=== PATIENT | female | born 1975 | race Caucasian/White ===

== ENCOUNTER 2020-02-13 16:48 | Emergency (ER) | payer MEDICARE, MEDICAID, SELFPAY ==
[2020-02-13 16:52] VITALS: BP 136/90; PULSE 118; RESP 18; TEMP 36.8; O2SAT 97; BMI 25.0
--- NOTE | 2020-02-13 17:46 | PC.NURSE ---
reports she just finished chemo on .. reports her left hand started to swell, redness. hand is dry and redness, edema extends up forearm. Redness is marked from walk in clinic on her arm. pt's right cw port is asymtomatic. no redness on skin. states her right ear is painful and started to hurt after chemo.
--- NOTE | 2020-02-13 18:01 | DI.US.S_ITS ---
PROCEDURE: US PERIPH VENOUS UP EXTREM LT INDICATIONS: Redness, swelling, chemotherapy TECHNIQUE: Real-time imaging, as well as color and pulse Doppler interrogation, was performed of the left upper extremity deep veins from the inferior neck to the antecubital fossa. COMPARISON: None. FINDINGS: The internal jugular vein, visualized portions of the subclavian vein, axillary, and brachial veins are free of intraluminal thrombus. Where physically possible, the veins are normally compressible. Color and pulse Doppler demonstrate normal intraluminal flow, with expected phasicity and pulsatility. Additional scanning of the cephalic and basilic veins of the superficial system demonstrate normal compressibility, without thrombus. IMPRESSION: No sonographic evidence of left upper extremity DVT. Dictated by: Topher Hester M.D. on 02/13/2020 at 19:09 Approved by: Topher Hester M.D. on 02/13/2020 at 19:10
[2020-02-13] MEDS: LIDOCAINE/PRILOCAINE 5 GM TOP (18:14)
[2020-02-13 19:27] LABS: Add Manual Diff / Slide Review NO; Basophils Absolute Auto 0 /uL (0-100); Basophils Percent Auto 0.2 % (0-2); Eosinophils Absolute Auto 0 /uL (0-450); Eosinophils Percent Auto 0.1 % (2-4); Hematocrit 28.3 % (36-46); Hemoglobin 9.8 g/dL (12.0-16.0); Lymphocytes Absolute Auto 600 /uL (1100-4500); Lymphocytes Percent Auto 7.8 % (25-40); Mean Corpuscular HGB Conc 34.5 % (30-36); Mean Corpuscular Hemoglobin 31.4 PG (26-34); Mean Corpuscular Volume 91.2 fL (80-100); Monocytes Absolute Auto 300 /uL (0-900); Monocytes Percent Auto 3.7 % (3-14); Neutrophils Absolute Auto 7200 /uL (1500-7000); Neutrophils Percent Auto 88.2 % (50-75); Platelet Count 407 X10^3/uL (150-400); Red Blood Cell Count 3.11 X10^6/uL (4.0-5.2); Red Cell Distribution Width 16.2 % (11.6-14.8); White Blood Cell Count 8.1 X10^3/uL (4.5-11.0)
[2020-02-13 19:34] LABS: Alanine Aminotransferase 48 IU/L (<35); Albumin 4.3 g/dL (3.5-5.0); Albumin Globulin Ratio 1.4 (1.0-2.8); Alkaline Phosphatase 74 U/L (38-126); Aspartate Aminotransferase 33 IU/L (14-36); BUN Creatinine Ratio 28.6 (6-22); Bilirubin Total 0.5 mg/dL (0.2-1.3); Blood Urea Nitrogen 12 mg/dL (7-17); Calcium 8.2 mg/dL (8.4-10.2); Carbon Dioxide 31 mmol/L (22-32); Chloride 101 mmol/L (98-107); Estimated Glomerular Filt Rate > 60.0 mL/min (>60); Globulin 3.1 g/dL (1.7-4.1); Glucose 106 mg/dL (70-100); HEMOLYSIS < 15 (0-50); Potassium 3.9 mmol/L (3.4-5.1); Sodium 137 mmol/L (137-145); Total Protein 7.4 g/dL (6.3-8.2)
[2020-02-13 19:52] LABS: Procalcitonin 0.05 ng/mL (<0.5)
[2020-02-13] MEDS: KETOROLAC 60 MG/2 ML VIAL 30 MG IV (19:52)
[2020-02-13 19:53] LABS: Bacteria Urine None Seen
--- NOTE | 2020-02-13 19:59 | DI.RAD.S_ITS ---
PROCEDURE: XR HAND LT MIN 3V INDICATIONS: pain, swelling L hand TECHNIQUE: 3 views of the hand(s) acquired. COMPARISON: None. FINDINGS: Bones: No fractures or dislocations. Carpal bones are normally aligned. No suspicious bony lesions. Soft tissues: No suspicious soft tissue calcifications. IMPRESSION: No acute finding. Dictated by: Topher Hester M.D. on 02/13/2020 at 20:26 Approved by: Topher Hester M.D. on 02/13/2020 at 20:26
[2020-02-13 20:01] LABS: Amorphous Sediment Urine 1+; Culture Indicated Urine Cult Not Indicated; Mucus Urine 2+ (Negative); RBC Urine 5-10/HPF (0-5/HPF); Squamous Epithelial Cell Urine 0-1 /HPF (0-5/HPF); WBC Urine 1-5/HPF (0-5/HPF)
--- NOTE | 2020-02-13 20:04 | ED_ITS ---
HPI - Ear Problem <BENNY Thomas - Last Filed: 02/13/20 20:36> General Chief complaint: Ear Stated complaint: RIGHT EAR PIAN SWELLING OF RIGHT HAND CHEMO PT Time Seen by Provider: 02/13/20 17:50 Source: patient Mode of arrival: Ambulatory Limitations: no limitations History of Present Illness HPI Narrative: The patient is a 44-year-old female nonsmoker with history of breast cancer on Taxol who presents with a chief complaint of has been red and swollen for 3-4 days. She states her pain is 10/10. It started at her thumb, and she has had decreased range of motion and increasing pain. She denies any fevers, denies any muscle aches complains of chills. She also complains of right-sided ear pain she notes that her ear canals painful, so she placed Vicks Vaporub in her ear canal to treat the ear pain per her mother's recommendation. This was not helpful. She denies any nausea vomiting or diarrhea any chest pain or shortness of breath. Related Data Home Medications Medication Instructions Recorded Confirmed calcitriol 0.25 mcg PO DAILY 02/13/20 02/13/20 calcium carbonate 300 mg (750 mg) 300 mg PO BID 02/13/20 02/13/20 chewable tablet calcium carbonate 600 mg calcium 600 mg PO DAILY 02/13/20 02/13/20 (1,500 mg) tablet gabapentin 100 mg PO BID 02/13/20 02/13/20 levetiracetam 1,000 mg tablet 1,000 mg PO BID 02/13/20 02/13/20 levothyroxine 112 mcg capsule 112 mcg PO DAILY 02/13/20 02/13/20 Previous Rx's Medication Instructions Recorded levofloxacin 750 mg PO DAILY #9 tab 02/13/20 ofloxacin 10 drop EAR-RIGHT DAILY 7 Days #10 02/13/20 ml Allergies Allergy/AdvReac Type Severity Reaction Status Date / Time latex Allergy Rash Verified 02/13/20 16:08 Review of Systems <BENNY Thomas - Last Filed: 02/13/20 20:36> Review of Systems Narrative: GENERAL: Denies chills, fatigue, malaise, fever, sweats. HEENT: See HPI RESPIRATORY: Denies dyspnea, cough, wheezing, hemoptysis, sputum. CARDIOVASCULAR: Denies chest pain, palpitations, orthopnea, edema, GASTROINTESTINAL: Denies nausea, vomiting, abdominal pain, diarrhea, constipation, melena. : Denies dysuria, frequency, incontinence, hematuria, urinary retention. MUSCULOSKELETAL: See HPI SKIN: Denies rash, skin lesions, or other NEUROLOGIC: Denies weakness, headache, numbness, change in speech, confusion, seizures, incoordination. PSYCHIATRIC: No concerning psychosocial issues. 12 point review of systems is negative except for those stated above Patient History <BENNY Thomas - Last Filed: 02/13/20 20:36> Medical History (Updated 02/13/20 @ 20:46 by Hiram Braun DO) Breast cancer (Acute) Exam <BENNY Thomas - Last Filed: 02/13/20 20:36> Narrative Exam Narrative: GENERAL: This is a well-nourished, well-developed patient, in no acute HEAD: Atraumatic. Normocephalic. No temporal or scalp tenderness. EYES: Pupils equal round and reactive. Extraocular motions intact. No scleral icterus. No injection or drainage. ENT: Nose without bleeding, purulent drainage or septal hematoma. Throat without erythema, tonsillar hypertrophy or exudate. Uvula midline. Airway patent. Right ear canal edematous, with purulent drainage. TM pearly mckeon. NECK: Trachea midline. No JVD or lymphadenopathy. Supple, nontender, no meningeal signs. CARDIOVASCULAR: Regular rate and rhythm RESPIRATORY: Clear to auscultation. Breath sounds equal bilaterally. No wheezes, rales, or rhonchi. No cough. No increased respiratory effort. No accessory muscle use. GASTROINTESTINAL: Abdomen soft, non-tender, nondistended. No hepato- splenomegaly, or palpable masses. No guarding. EXTREMITIES: The pain to palpation of left thumb, pain with active and passive range of motion. Capillary refill all fingers right hand less than 2 seconds. Pain palpation right hand that is generalized. Positive right radial pulse. BACK: Nontender without deformity or crepitance. No flank tenderness. NEURO: AOx3. SKIN: See extremity exam Initial Vital Signs Initial Vital Signs: Vital Signs Temperature 98.3 F 02/13/20 16:52 Pulse Rate 118 H 02/13/20 16:52 Respiratory Rate 18 02/13/20 16:52 Blood Pressure 136/90 02/13/20 16:52 Pulse Oximetry 97 02/13/20 16:52 <Hiram Braun DO - Last Filed: 02/13/20 22:42> Initial Vital Signs Initial Vital Signs: Vital Signs Temperature 98.3 F 02/13/20 16:52 Pulse Rate 118 H 02/13/20 16:52 Respiratory Rate 18 02/13/20 16:52 Blood Pressure 136/90 02/13/20 16:52 Pulse Oximetry 97 02/13/20 16:52 Scores <BENNY Thomas - Last Filed: 02/13/20 20:36> GCS [place] coma scale eye opening: Spontaneous [place] coma scale verbal response: Orientated [place] coma scale motor response: Obey commands Blaze coma scale total score: 15 Course <BENNY Thomas - Last Filed: 02/13/20 20:36> Orders Ordered: ED Orders 02/13/20 18:01 US periph venous up extrem lt Stat 02/13/20 19:15 Complete Blood Count AUTO DIFF Stat Comprehensive Metabolic Panel Stat Lactate (Lactic Acid) Stat Procalcitonin Stat 02/13/20 19:23 Blood Culture Stat 02/13/20 19:46 Urine Microscopic Stat 02/13/20 19:59 XR hand LT min 3V Stat 02/13/20 21:03 COVID19 -ED/INPAT/OR/L&D Stat Discontinued Medications Calcium Carbonate/Cholecalciferol (Oyster Shell 500-Vit D3 200 Tb) 1 each PO NOW ONE Stop: 02/13/20 22:07 Last Admin: 02/13/20 22:26 Dose: 1 each Documented by: RACHAEL Ceftriaxone Sodium/Dextrose (Rocephin) 1 gm in 50 mls @ 100 mls/hr IV NOW ONE Stop: 02/13/20 21:14 Last Infusion: 02/13/20 21:28 Dose: 0 mls/hr Documented by: Admin: 02/13/20 20:58 Dose: 100 mls/hr Documented by: RACHAEL Vancomycin HCl (Vancomycin) 1,000 mg in 200 mls @ 200 mls/hr IV NOW ONE Stop: 02/13/20 21:44 Last Admin: 02/13/20 21:34 Dose: 200 mls/hr Documented by: RACHAEL Ketorolac Tromethamine (Toradol) 30 mg IV NOW ONE Stop: 02/13/20 19:39 Last Admin: 02/13/20 19:52 Dose: 30 mg Documented by: RACHAEL Levetiracetam (Keppra) 500 mg PO NOW ONE Stop: 02/13/20 22:06 Levetiracetam (Keppra) 1,000 mg PO NOW ONE Stop: 02/13/20 22:08 Last Admin: 02/13/20 22:26 Dose: 1,000 mg Documented by: RACHAEL Levofloxacin (Levaquin) 750 mg PO NOW ONE Stop: 02/13/20 20:20 Last Admin: 02/13/20 20:52 Dose: Not Given Documented by: RACHAEL Lidocaine/Prilocaine (Lidocaine-Prilocaine Cream) 5 gm TOP NOW ONE Stop: 02/13/20 18:02 Last Admin: 02/13/20 18:14 Dose: 5 gm Documented by: EFFIE Vital Signs Vital signs: Vital Signs - 8 hr 02/13/20 16:52 02/13/20 22:15 Temperature 98.3 F Pulse Rate 118 H 96 H Respiratory Rate 18 15 Blood Pressure 136/90 101/62 Pulse Oximetry 97 98 <Hiram Braun DO - Last Filed: 02/13/20 22:42> Orders Ordered: ED Orders 02/13/20 18:01 US periph venous up extrem lt Stat 02/13/20 19:15 Complete Blood Count AUTO DIFF Stat Comprehensive Metabolic Panel Stat Lactate (Lactic Acid) Stat Procalcitonin Stat 02/13/20 19:23 Blood Culture Stat 02/13/20 19:46 Urine Microscopic Stat 02/13/20 19:59 XR hand LT min 3V Stat 02/13/20 21:03 COVID19 -ED/INPAT/OR/L&D Stat Discontinued Medications Calcium Carbonate/Cholecalciferol (O[place] 500-Vit D3 200 Tb) 1 each PO NOW ONE Stop: 02/13/20 22:07 Last Admin: 02/13/20 22:26 Dose: 1 each Documented by: RACHAEL Ceftriaxone Sodium/Dextrose (Rocephin) 1 gm in 50 mls @ 100 mls/hr IV NOW ONE Stop: 02/13/20 21:14 Last Infusion: 02/13/20 21:28 Dose: 0 mls/hr Documented by: Admin: 02/13/20 20:58 Dose: 100 mls/hr Documented by: RACHAEL Vancomycin HCl (Vancomycin) 1,000 mg in 200 mls @ 200 mls/hr IV NOW ONE Stop: 02/13/20 21:44 Last Admin: 02/13/20 21:34 Dose: 200 mls/hr Documented by: RACHAEL Ketorolac Tromethamine (Toradol) 30 mg IV NOW ONE Stop: 02/13/20 19:39 Last Admin: 02/13/20 19:52 Dose: 30 mg Documented by: RACHAEL Levetiracetam (Keppra) 500 mg PO NOW ONE Stop: 02/13/20 22:06 Levetiracetam (Keppra) 1,000 mg PO NOW ONE Stop: 02/13/20 22:08 Last Admin: 02/13/20 22:26 Dose: 1,000 mg Documented by: RACHAEL Levofloxacin (Levaquin) 750 mg PO NOW ONE Stop: 02/13/20 20:20 Last Admin: 02/13/20 20:52 Dose: Not Given Documented by: RACHAEL Lidocaine/Prilocaine (Lidocaine-Prilocaine Cream) 5 gm TOP NOW ONE Stop: 02/13/20 18:02 Last Admin: 02/13/20 18:14 Dose: 5 gm Documented by: EFFIE Vital Signs Vital signs: Vital Signs - 8 hr 02/13/20 16:52 02/13/20 22:15 Temperature 98.3 F Pulse Rate 118 H 96 H Respiratory Rate 18 15 Blood Pressure 136/90 101/62 Pulse Oximetry 97 98 Medical Decision Making <ZACH Thomas-INES - Last Filed: 02/13/20 20:36> Lab Data Result diagrams: 02/13/20 19:15 02/13/20 19:15 Labs: Lab Results 02/13/20 02/13/20 02/13/20 Range/Units 19:15 19:15 19:15 WBC 8.1 (4.5-11.0) X10^3/uL RBC 3.11 L (4.0-5.2) X10^6/uL Hgb 9.8 L (12.0-16.0) g/dL Hct 28.3 L (36-46) % MCV 91.2 (80-100) fL MCH 31.4 (26-34) PG MCHC 34.5 (30-36) % RDW 16.2 H (11.6-14.8) % Plt Count 407 H (150-400) X10^3/uL Neut % (Auto) 88.2 H (50-75) % Lymph % (Auto) 7.8 L (25-40) % [place] % (Auto) 3.7 (3-14) % Eos % (Auto) 0.1 L (2-4) % Baso % (Auto) 0.2 (0-2) % Neut # (Auto) 7200 H (0839-5630) /uL Lymph # (Auto) 600 L (9375-6298) /uL [place] # (Auto) 300 (0-900) /uL Eos # (Auto) 0 (0-450) /uL Baso # (Auto) 0 (0-100) /uL Sodium 137 (137-145) mmol/L Potassium 3.9 (3.4-5.1) mmol/L Chloride 101 (98-107) mmol/L Carbon Dioxide 31 (22-32) mmol/L BUN 12 (7-17) mg/dL Creatinine 0.42 L (0.52-1.04) mg/dL Estimated GFR > 60.0 (>60) mL/min BUN/Creatinine Ratio 28.6 H (6-22) Glucose 106 H (70-100) mg/dL Lactate (0.7-2.1) mmol/L Calcium 8.2 L (8.4-10.2) mg/dL Total Bilirubin 0.5 (0.2-1.3) mg/dL AST 33 (14-36) IU/L ALT 48 H (<35) IU/L Alkaline Phosphatase 74 (38-126) U/L Total Protein 7.4 (6.3-8.2) g/dL Albumin 4.3 (3.5-5.0) g/dL Globulin 3.1 (1.7-4.1) g/dL Albumin/Globulin Ratio 1.4 (1.0-2.8) Procalcitonin 0.05 (<0.5) ng/mL Urine RBC (0-5/HPF) Urine WBC (0-5/HPF) Ur Squamous Epith Cells (0-5/HPF) Amorphous Sediment Urine Bacteria (None) Urine Mucus (Negative) Ur Culture Indicated? COVID-19 PCR (Negative) 02/13/20 02/13/20 02/13/20 Range/Units 19:15 19:46 21:03 WBC (4.5-11.0) X10^3/uL RBC (4.0-5.2) X10^6/uL Hgb (12.0-16.0) g/dL Hct (36-46) % MCV (80-100) fL MCH (26-34) PG MCHC (30-36) % RDW (11.6-14.8) % Plt Count (150-400) X10^3/uL Neut % (Auto) (50-75) % Lymph % (Auto) (25-40) % [place] % (Auto) (3-14) % Eos % (Auto) (2-4) % Baso % (Auto) (0-2) % Neut # (Auto) (5337-0124) /uL Lymph # (Auto) (6421-7221) /uL [place] # (Auto) (0-900) /uL Eos # (Auto) (0-450) /uL Baso # (Auto) (0-100) /uL Sodium (137-145) mmol/L Potassium (3.4-5.1) mmol/L Chloride (98-107) mmol/L Carbon Dioxide (22-32) mmol/L BUN (7-17) mg/dL Creatinine (0.52-1.04) mg/dL Estimated GFR (>60) mL/min BUN/Creatinine Ratio (6-22) Glucose (70-100) mg/dL Lactate 1.0 (0.7-2.1) mmol/L Calcium (8.4-10.2) mg/dL Total Bilirubin (0.2-1.3) mg/dL AST (14-36) IU/L ALT (<35) IU/L Alkaline Phosphatase (38-126) U/L Total Protein (6.3-8.2) g/dL Albumin (3.5-5.0) g/dL Globulin (1.7-4.1) g/dL Albumin/Globulin Ratio (1.0-2.8) Procalcitonin (<0.5) ng/mL Urine RBC 5-10/hpf H (0-5/HPF) Urine WBC 1-5/hpf (0-5/HPF) Ur Squamous Epith Cells 0-1 /hpf (0-5/HPF) Amorphous Sediment 1+ Urine Bacteria None seen (None) Urine Mucus 2+ H (Negative) Ur Culture Indicated? Cult not indicated COVID-19 PCR Negative (Negative) Point of Care Testing Test Results Negative Urine Dip Bedside Urine Glucose Negative Bedside Urine Bilirubin - Negative Bedside Urine Ketone +++ 80 Urine Specific [place] 1.025 Bedside Urine Occult Blood +/- Bedside Urine pH 6 Bedside Urine Protein - Negative Bedside Urine Urobilinogen - Negative Bedside Urine Nitrite - Negative Bedside Urine Leukocytes - Negative Esterase Point of care testing: Point of Care Testing Test Results Negative Urine Dip Bedside Urine Glucose Negative Bedside Urine Bilirubin - Negative Bedside Urine Ketone +++ 80 Urine Specific [place] 1.025 Bedside Urine Occult Blood +/- Bedside Urine pH 6 Bedside Urine Protein - Negative Bedside Urine Urobilinogen - Negative Bedside Urine Nitrite - Negative Bedside Urine Leukocytes - Negative Esterase Imaging Data Extremity x-ray #1: Radiologist's Impression: [address] [place] [id number] XRay Report Signed Patient: [place] Chakraborty [facility]#: [id number] : 1975Acct:[id number] Age/Sex: 44 / FDate of Service: 02/13/20 Loc: ED Accession Number: [id number] Procedure: XR hand LT min 3V Ordering Provider: Domi Batista NEW [employer]IENT [employer]ING SERVICES CLERK- PROCEDURE: XR HAND LT MIN 3V INDICATIONS: pain, swelling L hand TECHNIQUE: 3 views of the hand(s) acquired. COMPARISON: None. FINDINGS: Bones: No fractures or dislocations. Carpal bones are normally aligned. No suspicious bony lesions. Soft tissues: No suspicious soft tissue calcifications. IMPRESSION: No acute finding. Dictated by: Topher Hester M.D. on 02/13/2020 at 20:26 Approved by: Topher Hester M.D. on 02/13/2020 at 20:26 US - DVT: Radiologist's Impression: [address] [place] [id number] Ultrasound Report Signed Patient: [place] Chakraborty [facility]#: [id number] : 1975Acct:[id number] Age/Sex: 44 / FDate of Service: 02/13/20 Loc: ED Accession Number: [id number] Procedure: periph venous up extrem lt Ordering Provider: Domi Batista PROCEDURE: US PERIPH VENOUS UP EXTREM LT INDICATIONS: Redness, swelling, chemotherapy TECHNIQUE: Real-time imaging, as well as color and pulse Doppler interrogation, was performed of the left upper extremity deep veins from the inferior neck to the antecubital fossa. COMPARISON: None. FINDINGS: The internal jugular vein, visualized portions of the subclavian vein, axillary, and brachial veins are free of intraluminal thrombus. Where physically possible, the veins are normally compressible. Color and pulse Doppler demonstrate normal intraluminal flow, with expected phasicity and pulsatility. Additional scanning of the cephalic and basilic veins of the superficial system demonstrate normal compressibility, without thrombus. IMPRESSION: No sonographic evidence of left upper extremity DVT. Dictated by: Topher Hester M.D. on 02/13/2020 at 19:09 Approved by: Topher Hester M.D. on 02/13/2020 at 19:10 [facility] Narrative Medical decision making narrative: The patient is a 44-year-old female who presents with a chief complaint of hand pain and swelling. She has obvious otitis externa as well. Given her immunocompromised status as well as her exam, I asked Dr Braun to evaluate the patient. Her exam is concerning for tenosynovitis, I discussed at length with the patient did have a concern that the infection has gone to her tendons. This could cause decreasing range of motion, progressing infection, and/or . The patient is adamant that she leaves the hospital tonight as she has to travel tomorrow. I discussed at length the risks including decreased function progressing infection and/or . The patient signed an against medical advice form with Shana ALATORRE as witness. The patient is alert oriented and capable of making her own decisions. I spoke at length with the patient's and mother encouraging the patient to stay. I discussed the possible implications of her against medical advice departure including progressing infection decreased function and/or . I reiterated these with the patient multiple times and she still request to leave. However I did give the patient Levaquin in the emergency department discharged her with a prescription of Levaquin as well as ofloxacin drops for her otitis externa. I encouraged her to be seen and re-evaluated as soon as possible if she leaves the emergency department today, which she states she will do. I d iscussed that we are happy to re-evaluate her if she chooses to come back to the emergency department tonight. Discussed monitoring for high fevers decreased function etcetera. Patient leaves against medical advice. <Hiram Braun, DO - Last Filed: 02/13/20 22:42> Lab Data Labs: Lab Results 02/13/20 02/13/20 02/13/20 Range/Units 19:15 19:15 19:15 WBC 8.1 (4.5-11.0) X10^3/uL RBC 3.11 L (4.0-5.2) X10^6/uL Hgb 9.8 L (12.0-16.0) g/dL Hct 28.3 L (36-46) % MCV 91.2 (80-100) fL MCH 31.4 (26-34) PG MCHC 34.5 (30-36) % RDW 16.2 H (11.6-14.8) % Plt Count 407 H (150-400) X10^3/uL Neut % (Auto) 88.2 H (50-75) % Lymph % (Auto) 7.8 L (25-40) % [place] % (Auto) 3.7 (3-14) % Eos % (Auto) 0.1 L (2-4) % Baso % (Auto) 0.2 (0-2) % Neut # (Auto) 7200 H (2459-0111) /uL Lymph # (Auto) 600 L (9822-5818) /uL [place] # (Auto) 300 (0-900) /uL Eos # (Auto) 0 (0-450) /uL Baso # (Auto) 0 (0-100) /uL Sodium 137 (137-145) mmol/L Potassium 3.9 (3.4-5.1) mmol/L Chloride 101 (98-107) mmol/L Carbon Dioxide 31 (22-32) mmol/L BUN 12 (7-17) mg/dL Creatinine 0.42 L (0.52-1.04) mg/dL Estimated GFR > 60.0 (>60) mL/min BUN/Creatinine Ratio 28.6 H (6-22) Glucose 106 H (70-100) mg/dL Lactate (0.7-2.1) mmol/L Calcium 8.2 L (8.4-10.2) mg/dL Total Bilirubin 0.5 (0.2-1.3) mg/dL AST 33 (14-36) IU/L ALT 48 H (<35) IU/L Alkaline Phosphatase 74 (38-126) U/L Total Protein 7.4 (6.3-8.2) g/dL Albumin 4.3 (3.5-5.0) g/dL Globulin 3.1 (1.7-4.1) g/dL Albumin/Globulin Ratio 1.4 (1.0-2.8) Procalcitonin 0.05 (<0.5) ng/mL Urine RBC (0-5/HPF) Urine WBC (0-5/HPF) Ur Squamous Epith Cells (0-5/HPF) Amorphous Sediment Urine Bacteria (None) Urine Mucus (Negative) Ur Culture Indicated? COVID-19 PCR (Negative) 02/13/20 02/13/20 02/13/20 Range/Units 19:15 19:46 21:03 WBC (4.5-11.0) X10^3/uL RBC (4.0-5.2) X10^6/uL Hgb (12.0-16.0) g/dL Hct (36-46) % MCV (80-100) fL MCH (26-34) PG MCHC (30-36) % RDW (11.6-14.8) % Plt Count (150-400) X10^3/uL Neut % (Auto) (50-75) % Lymph % (Auto) (25-40) % [place] % (Auto) (3-14) % Eos % (Auto) (2-4) % Baso % (Auto) (0-2) % Neut # (Auto) (5003-7823) /uL Lymph # (Auto) (7626-9973) /uL [place] # (Auto) (0-900) /uL Eos # (Auto) (0-450) /uL Baso # (Auto) (0-100) /uL Sodium (137-145) mmol/L Potassium (3.4-5.1) mmol/L Chloride (98-107) mmol/L Carbon Dioxide (22-32) mmol/L BUN (7-17) mg/dL Creatinine (0.52-1.04) mg/dL Estimated GFR (>60) mL/min BUN/Creatinine Ratio (6-22) Glucose (70-100) mg/dL Lactate 1.0 (0.7-2.1) mmol/L Calcium (8.4-10.2) mg/dL Total Bilirubin (0.2-1.3) mg/dL AST (14-36) IU/L ALT (<35) IU/L Alkaline Phosphatase (38-126) U/L Total Protein (6.3-8.2) g/dL Albumin (3.5-5.0) g/dL Globulin (1.7-4.1) g/dL Albumin/Globulin Ratio (1.0-2.8) Procalcitonin (<0.5) ng/mL Urine RBC 5-10/hpf H (0-5/HPF) Urine WBC 1-5/hpf (0-5/HPF) Ur Squamous Epith Cells 0-1 /hpf (0-5/HPF) Amorphous Sediment 1+ Urine Bacteria None seen (None) Urine Mucus 2+ H (Negative) Ur Culture Indicated? Cult not indicated COVID-19 PCR Negative (Negative) Point of Care Testing Test Results Negative Urine Dip Bedside Urine Glucose Negative Bedside Urine Bilirubin - Negative Bedside Urine Ketone +++ 80 Urine Specific [place] 1.025 Bedside Urine Occult Blood +/- Bedside Urine pH 6 Bedside Urine Protein - Negative Bedside Urine Urobilinogen - Negative Bedside Urine Nitrite - Negative Bedside Urine Leukocytes - Negative Esterase Point of care testing: Point of Care Testing Test Results Negative Urine Dip Bedside Urine Glucose Negative Bedside Urine Bilirubin - Negative Bedside Urine Ketone +++ 80 Urine Specific [place] 1.025 Bedside Urine Occult Blood +/- Bedside Urine pH 6 Bedside Urine Protein - Negative Bedside Urine Urobilinogen - Negative Bedside Urine Nitrite - Negative Bedside Urine Leukocytes - Negative Esterase MDM Narrative Medical decision making narrative: Dr braun: I was asked to evaluate the patient by the nurse practitioner. Given the patient's history of breast cancer and the fact that she is currently undergoing chemotherapy and the redness to her left thumb I do feel that IV antibiotics is warranted him admission to the hospital was warranted. Patient does have findings of her left thumb that could be consistent with flexor tenosynovitis. I do feel that this is unlikely however it is somewhat of a concern given the physical exam. She also has findings that are consistent with he right-sided otitis externa. The patient initially stated that she did not want to be admitted to the hospital. She had multiple reasons for this to include needing to get back to her hometown because of transportation issues with her mother. She also stated that she was scheduled for another dose of chemotherapy next Sunday. Initially the patient signed against medical advice paperwork however prior to her actually leaving the department and after talking with her mother she did change her mind and s tated that she would be admitted to the hospital although she stated that she would only stay for 1 night and would like to be discharged tomorrow for the above-stated reasons. I had a discussion with her regarding this. She asked me to contact the hospitals in her local area to see if she could be transferred there. I contacted the [facility] in [facility]. I talked with the hospitalist there. He does not have orthopedic coverage hit his Hospital and he asked that I contact the [facility] as they were a larger facility and had orthopedic coverage. The patient was okay with me contacting this facility. I talked with Dr. Miner the hospitalist at that facility. It is several hours away from our facility. We had a long discussion and came up with the plan that the patient is in agreement with. The patient did receive vancomycin and Rocephin here in the emergency department. The plan will be is to discharge the patient from our facility. She is going to stay in the local area this evening and tomorrow jaylon schwarzg and drive back to [place] which is close to where she lives. Patient will then go to the emergency department at [facility] to be evaluated there and if she needs admitted to the hospital or seen by orthopedics then they could facilitate this. Dr. miner is manager completions again tomorrow and stated that she would be happy to see the patient and admit the patient if needed. She also stated that she would inform the emergency department at that facility of our plan. The patient was in agreement with this plan. She is stable. She is not neutropenic. Not febrile. Is tolerating oral intake. Patient is in agreement. She was given a copy of all of her medical records and labs and radiologic studies. She was given strict return precautions. Discharge Plan Departure Patient Disposition: Home Clinical Impression: Otitis externa Qualifiers: Otitis externa type: unspecified type Chronicity: acute Laterality: right Qualified Code(s): H60.501 - Unspecified acute noninfective otitis externa, right ear Cellulitis Qualifiers: Site of cellulitis: extremity Site of cellulitis of extremity: upper extremity Laterality: left Qualified Code(s): L03.114 - Cellulitis of left upper limb Breast cancer Qualifiers: Estrogen receptor status: unspecified Patient sex: female Laterality: unspecified laterality Instructions: How to Instill Ear Drops, DI for Cellulitis -- Adult, DI for Otitis Externa, How To Perform RICE (Rest, Ice, Compress, Elevate) Activity Restrictions/Additional Instructions: You did receive a dose of 2 different antibiotics here in the emergency department. I did discuss her case with Dr. Miner who was the Internal Medicine/hospitalist at [facility]. After discussion with her the plan will be is to discharge from our facility. I do recommend that tomorrow morning you make your way back to [place] and follow-up in the emergency department at [facility]. Dr. Miner was going to talk with the emergency department there to let them know that you are going to follow up with them tomorrow for re-evaluation and either re-dosing your antibiotics or potentially admitting you to the hospital or having a consultation with Orthopedics if needed. In a separate issue you do have a ear infection in your right ear. You were given a prescription for antibiotics for this issue. These antibiotics do not treat the infection and your left hand so it is important that you follow-up tomorrow as described above. If prior to this follow-up your symptoms worsen please return to the nearest emergency department for further evaluation. Prescriptions: New ofloxacin 0.3 % drops 10 drop EAR-RIGHT DAILY 7 Days Qty: 10 RF: 0 levofloxacin 750 mg tablet 750 mg PO DAILY Qty: 9 RF: 0 No Action levothyroxine 112 mcg capsule 112 mcg PO DAILY RF: 0 calcium carbonate [Calcium 600] 600 mg calcium (1,500 mg) tablet 600 mg PO DAILY RF: 0 calcium carbonate [Tums] 300 mg (750 mg) tablet,chewable 300 mg PO BID RF: 0 levetiracetam [Keppra] 1,000 mg tablet 1,000 mg PO BID RF: 0 gabapentin 100 mg Capsule 100 mg PO BID RF: 0 calcitriol 0.25 mcg Capsule 0.25 mcg PO DAILY RF: 0 Stand Alone Forms: Against Medical Advice
[2020-02-13] MEDS: CEFTRIAXONE 1 GM/50 ML FROZ.PIGGY IV (20:58)
[2020-02-13 21:23] LABS: COVID19 -Nasal RAPID Negative (Negative)
[2020-02-13] MEDS: VANCOMYCIN 1,000 MG/200 ML PIGGYBACK 200 MG IV (21:34)
[2020-02-13 22:15] VITALS: BP 101/62; PULSE 96; RESP 15; O2SAT 98
[2020-02-13] MEDS: levETIRAcetam 250 MG TABLET 1000 MG PO (22:26)
[2020-02-13] MEDS: CALCIUM CARB/VIT D3 500/200 TABLET 1 EACH PO (22:26)
[2020-02-13] MEDS: diphenhydrAMINE 25 MG TABLET PO (22:57)
--- NOTE | 2020-02-13 22:58 | PC.NURSE ---
Patients itching head, back, and arms after Vanco administration. Benadryl given, will watch patient for about 30min to see if any changes occur
[2020-02-13 23:18] VITALS: BP 104/71; PULSE 98; RESP 15; O2SAT 99
== END 2020-02-13 22:32 | disposition home or self-care (01) ==
PROVIDERS: Emergency Provider Nurse Practitioner Family
DX: H60.501 Unspecified acute noninfective otitis externa, right ear (principal); L03.114 Cellulitis of left upper limb; C50.919 Malignant neoplasm of unspecified site of unspecified female breast
CPT/HCPCS: 36415; 73130; 80053; 81003; 81015; 81025; 83605; 84145; 85025; 87040; 87635; 93971; 96365; 96367; 96375; 99284; 99285; J1642; J1885